=== PATIENT | male | born 1940 | race Caucasian/White ===

== ENCOUNTER 2018-11-27 02:42 | Inpatient (IN) | payer OTHER ==
[2018-11-27] VITALS (31 sets, daily range): BP systolic 87–132
[~2018-11-27] VITALS: Ht 172.7 cm; Wt 78.9 kg
[2018-11-27] MEDS ORDERED: NACL 0.9% 1,000 ML IV ONE ×2 (03:00→06:15)
[2018-11-27] MEDS ORDERED: VALS320T2 PO (03:03)
[2018-11-27] MEDS ORDERED: NOR10 PO (03:03)
[2018-11-27] MEDS ORDERED: COLBENEMID PO (03:03)
[2018-11-27] MEDS ORDERED: ENOXAPARIN SODIUM 80 MG/0.8 ML SYRINGE ONE (03:04)
[2018-11-27] MEDS ORDERED: DOPamine PREMIX 250 ML IV ONE ×2 (03:12→03:15)
[2018-11-27 03:23] LABS: BASOPHILS # (AUTO) 0.1 K/uL (0.0-0.2); EOSINOPHILS # (AUTO) 0.2 K/uL (0.0-0.4); EOSINOPHILS % (AUTO) 1.5 % (0.0-4.0); HEMATOCRIT 40.2 % (36-54); HEMOGLOBIN 13.4 g/dL (14.0-18.0); LYMPHOCYTES # (AUTO) 3.8 K/uL (1.0-5.5); LYMPHOCYTES % (AUTO) 31.7 % (20.5-51.5); MEAN CORPUSCULAR HEMOGLOBIN 30 pg (27-31); MEAN CORPUSCULAR HGB CONC 33 % (32-36); MEAN CORPUSCULAR VOLUME 90 fL (79.0-98.0); MONOCYTES # (AUTO) 0.7 K/uL (0.0-1.0); MONOCYTES % (AUTO) 6.2 % (1.7-9.3); NEUTROPHILS # (AUTO) 7.3 K/uL (1.8-7.7); NEUTROPHILS % (AUTO) 59.6 % (40.0-70.0); PLATELET COUNT (AUTO) 255 K/uL (130-430); RED BLOOD CELL COUNT(AUTO) 4.45 MIL/uL (4.2-6.2); RED CELL DISTRIBUTION WIDTH 12.7 % (9.0-15.0); WHITE BLOOD COUNT (AUTO) 12.1 K/uL (4.8-10.8)
[2018-11-27 03:25] LABS: ANION GAP 16 (5-15); CALCIUM 7.5 mg/dL (8.4-11.0); CHLORIDE 102 mmol/L (98-107); CREATININE 1.57 mg/dL (0.55-1.30); GLUCOSE 302 mg/dL (70-99); SODIUM SERUM 136 mmol/L (136-145); UREA NITROGEN, BLOOD 31 mg/dL (8-21)
[2018-11-27 03:29] LABS: PROTHROMBIN TIME 10.4 SECS (9.5-12.5)
[2018-11-27 03:39] LABS: ALANINE AMINOTRANSFERASE 173 U/L (12-78); ASPARTATE AMINOTRANSFERASE 228 U/L (10-37); TOTAL BILIRUBIN 0.5 mg/dL (0.0-1.0)
[2018-11-27 03:40] LABS: POTASSIUM 3.1 mmol/L (3.5-5.1)
[2018-11-27] MEDS ORDERED: KCL 20 mEq in 100 mL (PREMIX) 100 ML IV ONE ×2 (03:45→04:30)
[2018-11-27 03:55] LABS: CKMB RELATIVE INDEX 12.5 (0.0-2.9); CREATINE KINASE MB 148.7 ng/mL (0-3.6)
[2018-11-27] MEDS: NACL 0.9% 1,000 ML IV SCH ×3 (04:20→21:51)
[2018-11-27] MEDS ORDERED: AMIODARONE HCL 900 MG in D5W 482 ML IV SCH (04:30)
[2018-11-27] MEDS ORDERED: MORPHINE 4 MG/ML INJ. SYRINGE IVP PRN (04:30)
[2018-11-27] MEDS ORDERED: AMIODARONE HCL 900 MG in D5W 482 ML IV ONE ×2 (04:30→05:40)
[2018-11-27] MEDS ORDERED: ACETAMINOPHEN 325 MG TABLET PO PRN (04:30)
[2018-11-27] MEDS ORDERED: ALBUTEROL SULFATE 0.083% 2.5 MG/3 ML VIAL.NEB INH PRN (04:30)
[2018-11-27] MEDS ORDERED: AMIODARONE HCL 150 MG in D5W 100 ML IV ONE (05:30)
[2018-11-27] MEDS ORDERED: AMIODARONE HCL 900 MG/18 ML VIAL IV ONE (05:39)
[2018-11-27] MEDS ORDERED: AMIODARONE HCL 150 MG/3ML VIAL ONE (05:40)
[2018-11-27] MEDS ORDERED: PIPERACILLIN/TAZOBACTAM 3.375 GM/VIAL (ZOSYN) IV ONE (05:41)
[2018-11-27] MEDS: PIPERACILLIN/TAZO 3.375/DEX-IS 50 ML IV SCH ×3 (06:00→18:53)
[2018-11-27 07:06] LABS: BILIRUBIN,URINE NEGATIVE (NEGATIVE); COLOR,URINE YELLOW (YELLOW); GLUCOSE,URINE NEGATIVE (NEGATIVE); KETONES,URINE NEGATIVE (NEGATIVE); LEUKOCYTE ESTERASE ,URINE NEGATIVE (NEGATIVE); NITRITE, URINE NEGATIVE (NEGATIVE); PH,URINE 5.5 (5.0-8.0); PROTEIN URINE 2+ (NEGATIVE); UROBILINOGEN,URINE 0.2 (0.2-1.0)
[2018-11-27 07:10] LABS: BLOOD, URINE TRACE (NEGATIVE); CLARITY/URINE SLIGHTLY HAZY (CLEAR)
[2018-11-27 07:20] LABS: BACTERIA,URINE MODERATE /HPF (None Seen); WBC,URINE 0-3 /HPF (0-3)
[2018-11-27 07:21] LABS: MUCUS,URINE 2+ /LPF (None Seen); URINE AMORPHOUS URATE 2+ /HPF (None Seen); YEAST,URINE None Seen /HPF (None Seen)
[2018-11-27 07:22] LABS: FINE GRANULAR CASTS,URINE 0-10 /LPF (None Seen)
[2018-11-27 07:35] LABS: BASOPHILS % (AUTO) 0.2 % (0.0-2.0); EOSINOPHILS % (AUTO) 0.1 % (0.0-4.0); HEMATOCRIT 41.6 % (36-54); HEMOGLOBIN 13.9 g/dL (14.0-18.0); LYMPHOCYTES # (AUTO) 0.9 K/uL (1.0-5.5); MEAN CORPUSCULAR HEMOGLOBIN 30 pg (27-31); MEAN CORPUSCULAR HGB CONC 33 % (32-36); MEAN CORPUSCULAR VOLUME 90 fL (79.0-98.0); MONOCYTES # (AUTO) 1.4 K/uL (0.0-1.0); MONOCYTES % (AUTO) 7.8 % (1.7-9.3); NEUTROPHILS # (AUTO) 15.6 K/uL (1.8-7.7); PLATELET COUNT (AUTO) 266 K/uL (130-430); RED CELL DISTRIBUTION WIDTH 12.2 % (9.0-15.0); WHITE BLOOD COUNT (AUTO) 17.9 K/uL (4.8-10.8)
[2018-11-27 07:39] LABS: ANION GAP 10 (5-15); CALCIUM 7.6 mg/dL (8.4-11.0); CHLORIDE 103 mmol/L (98-107); CREATININE 1.52 mg/dL (0.55-1.30); GLUCOSE 300 mg/dL (70-99); POTASSIUM 3.3 mmol/L (3.5-5.1); SODIUM SERUM 136 mmol/L (136-145); UREA NITROGEN, BLOOD 35 mg/dL (8-21)
[2018-11-27 07:43] LABS: ALANINE AMINOTRANSFERASE 200 U/L (12-78); ALBUMIN 3.1 g/dL (3.4-4.8); ASPARTATE AMINOTRANSFERASE 237 U/L (10-37); TOTAL BILIRUBIN 0.6 mg/dL (0.0-1.0)
[2018-11-27 09:25] LABS: INR 1.1 (0.80-1.20); NEUTROPHILS % (AUTO) 86.9 % (40.0-70.0); PROTHROMBIN TIME 11.2 SECS (9.5-12.5)
[2018-11-27] MEDS ORDERED: POTASSIUM CHLORIDE 20 MEQ TAB.PRT.SR NG ONE (10:15)
[2018-11-27] MEDS: DOPamine PREMIX 250 ML IV PRN ×2 (12:36→16:56)
[2018-11-27] MEDS ORDERED: ASPIRIN 81 MG TAB.CHEW PO ONE (18:30)
[2018-11-27] MEDS ORDERED: ATORVASTATIN 20 MG TABLET PO SCH (18:30)
[2018-11-27] MEDS: ENOXAPARIN SODIUM 80 MG/0.8 ML SYRINGE SUBCUT SCH (21:00)
[2018-11-27] MEDS ORDERED: ENOXAPARIN SODIUM 100 MG/ML SYRINGE ONE (21:25)
[2018-11-27] MEDS: ATORVASTATIN 20 MG TABLET PO SCH (21:38)
[2018-11-28] VITALS (34 sets, daily range): BP systolic 89–144
[2018-11-28] MEDS: PIPERACILLIN/TAZO 3.375/DEX-IS 50 ML IV SCH ×4 (00:24→17:27)
[2018-11-28] MEDS: DOPamine PREMIX 250 ML IV PRN ×2 (01:28→11:30)
[2018-11-28] MEDS: LORazepam 2 MG/ML VIAL IVP PRN ×2 (04:10→22:27)
[2018-11-28 05:37] LABS: BASOPHILS # (AUTO) 0.1 K/uL (0.0-0.2); BASOPHILS % (AUTO) 0.5 % (0.0-2.0); HEMATOCRIT 40.4 % (36-54); HEMOGLOBIN 13.6 g/dL (14.0-18.0); LYMPHOCYTES # (AUTO) 0.8 K/uL (1.0-5.5); MEAN CORPUSCULAR HEMOGLOBIN 30 pg (27-31); MEAN CORPUSCULAR HGB CONC 34 % (32-36); MEAN CORPUSCULAR VOLUME 90 fL (79.0-98.0); MONOCYTES # (AUTO) 0.9 K/uL (0.0-1.0); MONOCYTES % (AUTO) 5.6 % (1.7-9.3); NEUTROPHILS # (AUTO) 14.2 K/uL (1.8-7.7); NEUTROPHILS % (AUTO) 88.9 % (40.0-70.0); PLATELET COUNT (AUTO) 197 K/uL (130-430); RED BLOOD CELL COUNT(AUTO) 4.51 MIL/uL (4.2-6.2); RED CELL DISTRIBUTION WIDTH 12.8 % (9.0-15.0)
[2018-11-28 05:44] LABS: ANION GAP 10 (5-15); CALCIUM 7.6 mg/dL (8.4-11.0); CHLORIDE 104 mmol/L (98-107); CREATININE 1.03 mg/dL (0.55-1.30); GLUCOSE 133 mg/dL (70-99); POTASSIUM 3.6 mmol/L (3.5-5.1); SODIUM SERUM 137 mmol/L (136-145); UREA NITROGEN, BLOOD 28 mg/dL (8-21)
[2018-11-28 05:53] LABS: ALANINE AMINOTRANSFERASE 170 U/L (12-78); ALBUMIN 2.5 g/dL (3.4-4.8); TOTAL BILIRUBIN 0.9 mg/dL (0.0-1.0)
[2018-11-28 06:10] LABS: ASPARTATE AMINOTRANSFERASE 509 U/L (10-37)
[2018-11-28] MEDS: AMIODARONE HCL 200 MG TABLET PO SCH ×2 (08:46→20:55)
[2018-11-28] MEDS: NACL 0.9% 1,000 ML IV SCH ×2 (08:46→20:55)
[2018-11-28] MEDS: ASPIRIN 81 MG TAB.CHEW PO SCH (08:47)
[2018-11-28] MEDS: ENOXAPARIN SODIUM 80 MG/0.8 ML SYRINGE SUBCUT SCH ×2 (08:49→20:57)
[2018-11-28] MEDS: ATORVASTATIN 20 MG TABLET PO SCH (20:56)
[2018-11-29] VITALS (30 sets, daily range): BP systolic 93–131
[2018-11-29] MEDS: PIPERACILLIN/TAZO 3.375/DEX-IS 50 ML IV SCH ×5 (00:27→23:59)
[2018-11-29] MEDS: LORazepam 2 MG/ML VIAL IVP PRN (02:46)
[2018-11-29] MEDS: DOPamine PREMIX 250 ML IV PRN (04:50)
[2018-11-29 06:02] LABS: CHLORIDE 107 mmol/L (98-107); POTASSIUM 3.2 mmol/L (3.5-5.1); SODIUM SERUM 141 mmol/L (136-145)
[2018-11-29 06:03] LABS: ANION GAP 9 (5-15); BASOPHILS % (AUTO) 0.1 % (0.0-2.0); CALCIUM 7.4 mg/dL (8.4-11.0); CREATININE 0.97 mg/dL (0.55-1.30); GLUCOSE 106 mg/dL (70-99); HEMATOCRIT 36.1 % (36-54); HEMOGLOBIN 12.2 g/dL (14.0-18.0); LYMPHOCYTES # (AUTO) 0.7 K/uL (1.0-5.5); LYMPHOCYTES % (AUTO) 6.2 % (20.5-51.5); MEAN CORPUSCULAR HEMOGLOBIN 30 pg (27-31); MEAN CORPUSCULAR HGB CONC 34 % (32-36); MEAN CORPUSCULAR VOLUME 89 fL (79.0-98.0); MONOCYTES # (AUTO) 0.9 K/uL (0.0-1.0); MONOCYTES % (AUTO) 8.1 % (1.7-9.3); NEUTROPHILS # (AUTO) 9.8 K/uL (1.8-7.7); NEUTROPHILS % (AUTO) 85.6 % (40.0-70.0); PLATELET COUNT (AUTO) 140 K/uL (130-430); RED BLOOD CELL COUNT(AUTO) 4.04 MIL/uL (4.2-6.2); RED CELL DISTRIBUTION WIDTH 12.6 % (9.0-15.0); UREA NITROGEN, BLOOD 29 mg/dL (8-21); WHITE BLOOD COUNT (AUTO) 11.4 K/uL (4.8-10.8)
[2018-11-29 06:10] LABS: ALANINE AMINOTRANSFERASE 135 U/L (12-78); ALBUMIN 2.1 g/dL (3.4-4.8); ASPARTATE AMINOTRANSFERASE 370 U/L (10-37)
[2018-11-29] MEDS ORDERED: POTASSIUM CHLORIDE 20 MEQ TAB.PRT.SR GT ONE (09:15)
[2018-11-29] MEDS: AMIODARONE HCL 200 MG TABLET PO SCH ×2 (09:38→20:41)
[2018-11-29] MEDS: ASPIRIN 81 MG TAB.CHEW PO SCH (09:39)
[2018-11-29] MEDS: ENOXAPARIN SODIUM 80 MG/0.8 ML SYRINGE SUBCUT SCH ×2 (09:42→20:50)
[2018-11-29] MEDS: NACL 0.9% 1,000 ML IV SCH (12:03)
[2018-11-29] MEDS ORDERED: 0.45% NACL 1,000 ML IV SCH (14:45)
[2018-11-29] MEDS: ATORVASTATIN 20 MG TABLET PO SCH (20:41)
[2018-11-30] VITALS (24 sets, daily range): BP systolic 108–150
[2018-11-30] MEDS ORDERED: DILTIAZEM HCL 25 MG/5 ML VIAL IVP ONE ×2 (00:15→00:45)
[2018-11-30] MEDS ORDERED: METOPROLOL SUCCINATE 25 MG TAB.SR.24H (TOPROL XL) PO ONE ×2 (00:15→01:05)
[2018-11-30] MEDS ORDERED: DILTIAZEM HCL 25 MG/5 ML VIAL ONE (00:21)
[2018-11-30] MEDS: PIPERACILLIN/TAZO 3.375/DEX-IS 50 ML IV SCH ×4 (05:16→23:47)
[2018-11-30 06:01] LABS: ANION GAP 10 (5-15); CALCIUM 7.8 mg/dL (8.4-11.0); CHLORIDE 108 mmol/L (98-107); CREATININE 0.96 mg/dL (0.55-1.30); GLUCOSE 94 mg/dL (70-99); POTASSIUM 3.4 mmol/L (3.5-5.1); SODIUM SERUM 143 mmol/L (136-145); UREA NITROGEN, BLOOD 32 mg/dL (8-21)
[2018-11-30 06:08] LABS: ALANINE AMINOTRANSFERASE 119 U/L (12-78); ALBUMIN 2.2 g/dL (3.4-4.8); ASPARTATE AMINOTRANSFERASE 181 U/L (10-37); TOTAL BILIRUBIN 1.1 mg/dL (0.0-1.0)
[2018-11-30 06:33] LABS: BASOPHILS % (AUTO) 0.4 % (0.0-2.0); EOSINOPHILS % (AUTO) 0.1 % (0.0-4.0); HEMATOCRIT 32.8 % (36-54); HEMOGLOBIN 11.2 g/dL (14.0-18.0); LYMPHOCYTES # (AUTO) 0.9 K/uL (1.0-5.5); MEAN CORPUSCULAR HEMOGLOBIN 31 pg (27-31); MEAN CORPUSCULAR HGB CONC 34 % (32-36); MEAN CORPUSCULAR VOLUME 90 fL (79.0-98.0); MONOCYTES # (AUTO) 0.8 K/uL (0.0-1.0); MONOCYTES % (AUTO) 8.4 % (1.7-9.3); NEUTROPHILS # (AUTO) 8.2 K/uL (1.8-7.7); NEUTROPHILS % (AUTO) 82.1 % (40.0-70.0); PLATELET COUNT (AUTO) 145 K/uL (130-430); RED BLOOD CELL COUNT(AUTO) 3.66 MIL/uL (4.2-6.2); RED CELL DISTRIBUTION WIDTH 12.8 % (9.0-15.0); WHITE BLOOD COUNT (AUTO) 9.9 K/uL (4.8-10.8)
[2018-11-30] MEDS: AMIODARONE HCL 200 MG TABLET PO SCH ×2 (08:58→20:21)
[2018-11-30] MEDS: ASPIRIN 81 MG TAB.CHEW PO SCH (08:59)
[2018-11-30] MEDS: METOPROLOL SUCCINATE 25 MG TAB.SR.24H (TOPROL XL) PO SCH (09:00)
[2018-11-30] MEDS: ENOXAPARIN SODIUM 80 MG/0.8 ML SYRINGE SUBCUT SCH ×2 (09:01→20:23)
[2018-11-30] MEDS ORDERED: POTASSIUM CHLORIDE 20 MEQ TAB.PRT.SR PO ONE (09:45)
[2018-11-30] MEDS: ATORVASTATIN 20 MG TABLET PO SCH (20:20)
[2018-12-01] VITALS (24 sets, daily range): BP systolic 98–142
[2018-12-01] MEDS: PIPERACILLIN/TAZO 3.375/DEX-IS 50 ML IV SCH ×3 (05:39→17:27)
[2018-12-01 05:52] LABS: BASOPHILS % (AUTO) 0.3 % (0.0-2.0); EOSINOPHILS # (AUTO) 0.1 K/uL (0.0-0.4); HEMATOCRIT 31.5 % (36-54); HEMOGLOBIN 10.6 g/dL (14.0-18.0); LYMPHOCYTES # (AUTO) 0.9 K/uL (1.0-5.5); LYMPHOCYTES % (AUTO) 10.1 % (20.5-51.5); MEAN CORPUSCULAR HEMOGLOBIN 30 pg (27-31); MEAN CORPUSCULAR HGB CONC 34 % (32-36); MEAN CORPUSCULAR VOLUME 90 fL (79.0-98.0); MONOCYTES # (AUTO) 0.8 K/uL (0.0-1.0); MONOCYTES % (AUTO) 9.3 % (1.7-9.3); NEUTROPHILS # (AUTO) 6.8 K/uL (1.8-7.7); NEUTROPHILS % (AUTO) 79.3 % (40.0-70.0); PLATELET COUNT (AUTO) 152 K/uL (130-430); RED CELL DISTRIBUTION WIDTH 12.6 % (9.0-15.0); WHITE BLOOD COUNT (AUTO) 8.6 K/uL (4.8-10.8)
[2018-12-01 06:08] LABS: ALANINE AMINOTRANSFERASE 129 U/L (12-78); ALBUMIN 2.1 g/dL (3.4-4.8); ANION GAP 6 (5-15); ASPARTATE AMINOTRANSFERASE 95 U/L (10-37); CALCIUM 7.9 mg/dL (8.4-11.0); CHLORIDE 109 mmol/L (98-107); CREATININE 0.82 mg/dL (0.55-1.30); GLUCOSE 108 mg/dL (70-99); POTASSIUM 3.3 mmol/L (3.5-5.1); SODIUM SERUM 141 mmol/L (136-145); UREA NITROGEN, BLOOD 33 mg/dL (8-21)
[2018-12-01] MEDS ORDERED: POTASSIUM CHLORIDE 20 MEQ TAB.PRT.SR PO ONE (08:45)
[2018-12-01] MEDS: AMIODARONE HCL 200 MG TABLET PO SCH ×2 (09:42→21:09)
[2018-12-01] MEDS: ASPIRIN 81 MG TAB.CHEW PO SCH (09:42)
[2018-12-01] MEDS: METOPROLOL SUCCINATE 25 MG TAB.SR.24H (TOPROL XL) PO SCH (09:44)
[2018-12-01] MEDS: ENOXAPARIN SODIUM 80 MG/0.8 ML SYRINGE SUBCUT SCH ×2 (09:47→21:12)
[2018-12-01] MEDS ORDERED: METOPROLOL SUCCINATE 50 MG TAB.SR.24H (TOPROL XL) PO ONE (13:15)
[2018-12-01] MEDS ORDERED: DILTIAZEM HCL 25 MG/5 ML VIAL IVP ONE (13:15)
[2018-12-01] MEDS ORDERED: DILTIAZEM HCL 25 MG/5 ML VIAL ONE (13:18)
[2018-12-01] MEDS: ATORVASTATIN 20 MG TABLET PO SCH (21:09)
[2018-12-02] VITALS (24 sets, daily range): BP systolic 108–139
[2018-12-02] MEDS: PIPERACILLIN/TAZO 3.375/DEX-IS 50 ML IV SCH ×5 (00:02→23:15)
[2018-12-02 06:43] LABS: ANION GAP 9 (5-15); CALCIUM 7.9 mg/dL (8.4-11.0); CHLORIDE 110 mmol/L (98-107); CREATININE 0.96 mg/dL (0.55-1.30); GLUCOSE 99 mg/dL (70-99); POTASSIUM 3.4 mmol/L (3.5-5.1); SODIUM SERUM 146 mmol/L (136-145); UREA NITROGEN, BLOOD 29 mg/dL (8-21)
[2018-12-02 06:57] LABS: ALANINE AMINOTRANSFERASE 134 U/L (12-78); ALBUMIN 2.1 g/dL (3.4-4.8); ASPARTATE AMINOTRANSFERASE 72 U/L (10-37); TOTAL BILIRUBIN 0.9 mg/dL (0.0-1.0)
[2018-12-02] MEDS: AMIODARONE HCL 200 MG TABLET PO SCH (08:20)
[2018-12-02] MEDS: ASPIRIN 81 MG TAB.CHEW PO SCH (08:20)
[2018-12-02] MEDS: METOPROLOL SUCCINATE 25 MG TAB.SR.24H (TOPROL XL) PO SCH (08:20)
[2018-12-02] MEDS: ENOXAPARIN SODIUM 80 MG/0.8 ML SYRINGE SUBCUT SCH ×2 (08:22→20:23)
[2018-12-02] MEDS ORDERED: POTASSIUM CHLORIDE 20 MEQ TAB.PRT.SR PO ONE (09:45)
[2018-12-02] MEDS ORDERED: METOPROLOL SUCCINATE 50 MG TAB.SR.24H (TOPROL XL) PO ONE (13:00)
[2018-12-02] MEDS ORDERED: AMIODARONE HCL 200 MG TABLET PO ONE (13:00)
[2018-12-02] MEDS: ATORVASTATIN 20 MG TABLET PO SCH (20:22)
[2018-12-02] MEDS ORDERED: AMIODARONE HCL 200 MG TABLET PO SCH (21:00)
[2018-12-03] VITALS (9 sets, daily range): BP systolic 105–126
[2018-12-03] MEDS ORDERED: AMIODARONE HCL 900 MG in D5W 482 ML IV SCH (01:00)
[2018-12-03] MEDS ORDERED: AMIODARONE HCL 900 MG/18 ML VIAL IV ONE (01:16)
[2018-12-03] MEDS: PIPERACILLIN/TAZO 3.375/DEX-IS 50 ML IV SCH (05:57)
[2018-12-03] MEDS ORDERED: METOPROLOL SUCCINATE 50 MG TAB.SR.24H (TOPROL XL) PO SCH (09:00)
== END 2018-12-03 08:02 | disposition short-term general hospital (02) | DRG 871 ==
LOC: SED 02:42 → SIC 04:24
PROVIDERS: ADMIT Internal Medicine; ATTEND Internal Medicine
PROC: 5A12012 Performance of Cardiac Output, Single, Manual (ICD-10-PCS; principal; 2018-11-27)
PROC: 02HV33Z Insertion of Infusion Device into Superior Vena Cava, Percutaneous Approach (ICD-10-PCS; 2018-11-27)
PROC: B548ZZA Ultrasonography of Superior Vena Cava, Guidance (ICD-10-PCS; 2018-11-27)
PROC: 0BH17EZ Insertion of Endotracheal Airway into Trachea, Via Natural or Artificial Opening (ICD-10-PCS; 2018-11-27)
PROC: 5A1945Z Respiratory Ventilation, 24-96 Consecutive Hours (ICD-10-PCS; 2018-11-27)
DX: A41.9 Sepsis, unspecified organism (principal); I21.9 Acute myocardial infarction, unspecified; J96.01 Acute respiratory failure with hypoxia; J69.0 Pneumonitis due to inhalation of food and vomit; I49.01 Ventricular fibrillation; I46.9 Cardiac arrest, cause unspecified; I42.9 Cardiomyopathy, unspecified; N39.0 Urinary tract infection, site not specified; N17.9 Acute kidney failure, unspecified; I48.0 Paroxysmal atrial fibrillation; E87.6 Hypokalemia; M10.9 Gout, unspecified; I10 Essential (primary) hypertension; I95.9 Hypotension, unspecified; I25.2 Old myocardial infarction; Z82.49 Family history of ischemic heart disease and other diseases of the circulatory system; Z86.79 Personal history of other diseases of the circulatory system; Z87.891 Personal history of nicotine dependence; Z79.899 Other long term (current) drug therapy
CPT/HCPCS: 36415; 36600; 71045; 76700-TC; 80053; 81000-TC; 82550-TC; 82553-TC; 82803-TC; 83605; 83735-TC; 83880; 84484; 85025; 85610-TC; 85730-TC; 87040-TC; 87070-TC; 87081; 87086; 87205-TC; 93005; 93306; 94002; 94003; 94640; 96365; 99291; C1751; J0282; J1265; J1650; J2060; J2543; J3480; J3490; J7030; J7060